=== PATIENT | female | born 1955 | race Caucasian/White ===

== ENCOUNTER 2017-12-27 08:29 | Inpatient (IN) | payer OTHER ==
[2017-12-27] MEDS ORDERED: BUPIVACAINE 0.5% 30 ML SDV ONE (08:34)
[2017-12-27] MEDS ORDERED: POLYMYXIN B SULFATE 500,000 UNIT/10 ML SYR IRR ONE (08:35)
[2017-12-27] MEDS ORDERED: BACITRACIN 50,000 UNITS/10 ML SYR IRR ONE (08:35)
[2017-12-27] MEDS ORDERED: LIDOCAINE 1% 2 ML INJ ID PRN (08:42)
[2017-12-27] MEDS ORDERED: LR 1,000 ML IV ONE (08:42)
[2017-12-27] MEDS ORDERED: MIDAZOLAM 2 MG/2 ML VIAL IVP ONE (09:25)
--- NOTE | 2017-12-27 09:25 | PDANEPAE ---
ANE Past Medical History - Cardiovascular History Hx Hypertension: Yes Hx Arrhythmias: No Hx Chest Pain: No Hx Coronary Artery / Peripheral Vascular Disease: No Hx CHF / Valvular Disease: No Hx Palpitations: No - Pulmonary History Hx COPD: No Hx Asthma/Reactive Airway Disease: No Hx Recent Upper Respiratory Infection: No Hx Oxygen in Use at Home: No Hx Sleep Apnea: Yes Sleep Apnea Screening Result - Last Documented: Negative - Neurologic History Hx Cerebrovascular Accident: No Hx Seizures: No Hx Dementia: No Neurologic History Comment: OCCAS MIGRAINE - ONCE YRLY - Endocrine History Hx Diabetes: Yes Hypothyroid: Yes Hyperthyroid: No Obesity: no Endocrine History Comment: HYPOTHYROID - Renal History Hx Renal Disorders: No Renal History Comment: KIDNEY STONE - NON SYMPTOMATIC - Liver History Hx Hepatic Disorders: No Hepatic History Comment: RUBY. FATTY LIVER - Neurological & Psychiatric Hx Hx Neurological and Psychiatric Disorders: Yes Neurological / Psychiatric History Comment: PANIC ATTACK IN PAST. ANXIETY - Cancer History Hx Cancer: Yes Cancer History Comment: COLON - Congenital Disorder History Hx Congenital Disorders: No - GI History Hx Gastrointestinal Disorders: Yes Gastrointestinal History Comment: HIATAL HERNIA. COLON CA - Other Health History Other Health History: ANEMIA - BLEEDING COLON - Chronic Pain History Chronic Pain: No - Surgical History Prior Surgeries: ENDOSCOPY COLONOSCOPY. CYST R OVARY. LAPAROSCOPIC ADHESIONS ENDOMETRIOSIS. CHOLECYSTECTOMY. TONSILLECTOMY. WISDOM TEETH ANE Review of Systems Review of Systems: - Exercise capacity METS (RN): 5 METS ANE Patient History - Allergies Allergies/Adverse Reactions: adhesive tape Allergy (Verified 12/25/17 11:14) Rash meperidine [From Demerol] Allergy (Verified 12/25/17 11:14) HALLUCINATIONS - Home Medications Home Medications: Levothyroxine [Synthroid 125 mcg (*)] 125 mcg PO DAILY06 12/25/17 [Last Taken 07:30] Metoprolol Succinate Xr [Toprol Xl 100 mg (*)] 100 mg PO DAILY 12/25/17 [Last Taken 12/27/17 07:30] Sertraline HCl [Zoloft 100mg (*)] 150 mg PO DAILY 12/25/17 [Last Taken 12/27/17 07:30] - NPO status NPO Since - Liquids (Date): 12/27/17 NPO Since - Liquids (Time): 07:30 NPO Since - Solids (Date): 12/26/17 NPO Since - Solids (Time): 23:00 - Smoking Hx Smoking Status: Never smoked - Family Anes Hx Family Hx Anesthesia Complications: NEG ANE Labs/Vital Signs - Vital Signs Blood Pressure: 182/79 Heart Rate: 70 Respiratory Rate: 16 O2 Sat (%): 98 Height: 166.37 cm Weight: 61.689 kg ANE Physical Exam - Airway Neck exam: FROM Mallampati Score: Class 1 Mouth exam: normal dental/mouth exam, small mouth opening - Pulmonary Pulmonary: no respiratory distress - Cardiovascular Cardiovascular: regular rate and rhythym - ASA Status ASA Status: II ANE Anesthesia Plan Anesthesia Plan: general endotracheal anesthesia Specialized Airway: video laryngoscope
[2017-12-27] MEDS ORDERED: fentaNYL 250 MCG/5 ML INJ ONE (09:50)
[2017-12-27] MEDS ORDERED: PROPOFOL/EMULSION 500 MG/50 ML BOTTLE IV ONE (09:50)
[2017-12-27] MEDS ORDERED: LIDOCAINE 2% 5 ML SDV ONE ×2 (09:52→12:57)
[2017-12-27] MEDS ORDERED: ERTAPENEM 1 GM VIAL IV ONE (10:22)
--- NOTE | 2017-12-27 10:22 | PDHPUP ---
History & Physical Update H&P update statement: This history and physical update is based on an assessment of the patient which was completed after admission or registration (within 24 hours), but prior to the surgery/procedure. H&P update: H&P reviewed & patient examined, no change in patient's condition since H&P completed
[2017-12-27] MEDS ORDERED: BUPIVACAINE 0.25% 30 ML SDV ONE (12:05)
[2017-12-27] MEDS ORDERED: HYDROmorphONE/DILAUDID 2 MG/ML INJ ONE (12:25)
[2017-12-27] MEDS ORDERED: ROCURONIUM 100 MG/10 ML VIAL ONE (12:57)
[2017-12-27] MEDS ORDERED: ONDANSETRON 4 MG/2 ML VIAL ONE (12:57)
[2017-12-27] MEDS ORDERED: DEXAMETHASONE 4 MG/ML VIAL ONE (12:57)
[2017-12-27] MEDS ORDERED: HYDROmorphONE/DILAUDID 1 MG/ML INJ IVP PRN (13:44)
[2017-12-27] MEDS ORDERED: NALOXONE HCL 0.4 MG/ML INJ IVP PRN (13:44)
[2017-12-27] MEDS ORDERED: LR 500 ML IV PRN (13:44)
[2017-12-27] MEDS ORDERED: fentaNYL 100 MCG/2 ML INJ IVP PRN (13:44)
--- NOTE | 2017-12-27 13:44 | POSTANESTH ---
Post Anesthetic Evaluation Cardiovascular Status: Normal, Stable Respiratory Status: Normal, Stable Level of Consciousness/Mental Status: Can Participate in Eval Pain Control: Adequate, Prn Tx Ordered Nausea/Vomiting Control: Adequate, Prn Tx Ordered Complications Possibly Related to Anesthesia: None Noted
[2017-12-27] MEDS ORDERED: PROMETHAZINE HCL 25 MG/ML INJ ONE (13:53)
[2017-12-27] MEDS ORDERED: LABETALOL HCL 5 MG/ML 20 ML MDV ONE (13:53)
[2017-12-27] MEDS ORDERED: HYDROmorphONE/DILAUDID 1 MG/ML INJ ONE (13:53)
[2017-12-27] MEDS ORDERED: fentaNYL 100 MCG/2 ML INJ ONE (13:54)
[2017-12-27] MEDS: PROMETHAZINE HCL 25 MG/ML INJ IVP PRN ×2 (13:59→14:15)
[2017-12-27] MEDS: LABETALOL HCL 5 MG/ML 20 ML MDV IVP PRN ×3 (14:01→14:50)
[2017-12-27] MEDS ORDERED: ONDANSETRON 4 MG/2 ML VIAL IVP PRN (14:11)
[2017-12-27] MEDS ORDERED: TEMAZEPAM 15 MG CAP PO PRN (14:11)
--- NOTE | 2017-12-27 14:23 | POSTOPPROG ---
Post Op Note Date of Operation: 12/27/17 Surgeon: Alverto Lindsay (, FACS) Agricultural Chemicals Inspector: Greg Valadez RN-FA Anesthesiologist: Guicho Galindo MD Anesthesia: GET(General Endotracheal) Pre-op Diagnosis: cecal carcinoma/polpyp hepatic flexure Post-op Diagnosis: cecal carcinoma/polyp mid transverse conon Procedure: lap extended right dipak-colectoomy Findings: see dictated report Inf/Abcess present in the surg proc area at time of surgery?: No EBL: 50-100 (100) Complications: duodenal serosal tear Specimen(s): cecum/TI/ascending and portion of transverse colon
[2017-12-27] MEDS ORDERED: LR 1,000 ML IV SCH (14:30)
[2017-12-27] MEDS ORDERED: PROMETHAZINE HCL 25 MG/ML INJ IVP PRN (15:30)
--- NOTE | 2017-12-27 15:49 | GOP ---
[f rep st] OPERATIVE REPORT DATE OF OPERATION: 12/27/2017 SURGEON: Alverto Lindsay MD,FACS HEALTH INSURANCE ASSESSOR: STEPHANY Stallings ANESTHESIA: General endotracheal. ANESTHESIOLOGIST: Justin Painting MD PREOPERATIVE DIAGNOSIS: 1. Cecal carcinoma. 2. Unresected polyp hepatic flexure. POSTOPERATIVE DIAGNOSIS: 1. Extensive intraabdominal adhesions. 2. Cecal carcinoma. 3. Indeterminate polyps of the transverse colon. PROCEDURE PERFORMED: Laparoscopic assisted extended right colectomy with lysis of adhesions. FINDINGS: Extensive intraabdominal adhesions between the omentum and anterior abdominal wall related to prior surgeries. Tattoo agrawal from the unresected polyps suspected to be in the hepatic flexure extending to the mid transverse colon. No evidence of peritoneal or hepatic metastases. Extended right colectomy specimen submitted for gross inspection showing 2 polyps in the transverse colon 6 cm from the resection margin. These appeared benign but were not confirmed by frozen section. Cecal carcinoma encroaching upon the appendiceal orifice with mild appendiceal dilatation and probable transmural penetration of tumor resected with adjacent peritoneum and fat, submitted for permanent section. ESTIMATED BLOOD LOSS: 100 mL. DESCRIPTION OF PROCEDURE: After informed consent was obtained, the patient was brought to the operating room and placed under general anesthesia. She had undergone mechanical and antibiotic bowel preparation and received 1 g of ertapenem prior to skin incision. Before proceeding, a time-out and identification of patient was performed. The abdomen was prepped and draped in the usual sterile fashion. The left arm was tucked and padded. SCD stockings were in place. All incision sites were infiltrated with 0.25% Marcaine. A previous laparoscopic infraumbilical incision was reincised and dissection carried out through the skin and subcutaneous tissues and anterior fascia entering the peritoneal cavity under direct visualization. A 12 mm bladeless trocar was introduced and pneumoperitoneum established with CO2 gas to a pressure of 15 mmHg. A 30-degree scope was introduced and extensive peritoneal adhesions were noted immediately. Additional 5 mm ports were placed in the left upper quadrant, lower midline and this allowed moving the scope from port to port, and the Harmonic Scalpel was introduced dispatching the adhesions from the anterior abdominal wall under direct visualization. After these had been cleared, the ascending colon and cecum were identified. There were adhesions to the abdominal wall lateral to the course of the colon suspicious for possible transmural penetration. The tattoo agrawal in the transverse colon were noted and the omentum overlaid the transverse colon but did not appear to have any evidence of malignancy. The ascending colon was mobilized along with the cecum taking down the peritoneum well lateral to the cecum and including this as part of the specimen. As dissection was carried out from anterior to posterior, the colon was swept medially freeing up the terminal ilium and appendix in the process. The dissection was carried out cephalad to the hepatic flexure where the omentum and colon were closely fused to the liver edge where previous cholecystectomy had been performed. Turning to the mid transverse colon, the omentum was incised between the colon and the stomach using the Harmonic Scalpel for hemostasis, and this dissection was carried out toward the gallbladder fossa. As the transverse colon was liberated from its attachments, the adhesions pulled up the duodenal and, in the course of dissecting this, a small serosal tear was observed. This did not appear to be full thickness and was closely inspected and I elected to repair this as follows : A 3-0 Vicryl suture on an SH needle was shaped into a ski shape needle and passed through the 12 mm port. This was used to create a serosal to serosal closure over the laceration (Lembert stitch) and was tied intracorporeally. This closed off the defect nicely and I suspect this would have healed without suturing because it was only partial thickness but did not want to take that chance. The remainder of the dissection was performed laparoscopically incising the transverse mesocolon and dissecting from the level of the middle colic artery to the hepatic flexure and then inferiorly to the ileocolic vessels taking the mesentery close to the course of the ileocolic vessels. Blood supply to the terminal ileum was preserved. At this point, we proceeded to perform an access incision and mobilize the bowel for resection and anastomosis. A small transverse incision was made in the right upper quadrant just to the right of midline incising through the anterior rectus sheath, rectus muscle, posterior rectus sheath and peritoneum. A medium Nilo wound protector was deployed and the ascending colon, omentum, hepatic flexure and transverse colon were mobilized into the incision. The bowel was divided proximally and distally with the AUDREY stapler and the specimen submitted to Pathology for gross inspection as well as permanent section. Hemostasis was secured with cautery and 2-0 Vicryl suture ligature. The transverse colon and terminal ilium were reanastomosed in a hand-sewn [id number] two-layered anastomosis as follows: Small bowel and large bowel were approximated with interrupted 3-0 Vicryl sutures in an isoperistaltic arrangement. Parallel enterotomies were performed and the posterior row of the anastomosis was performed with continuous running 3 -0 Vicryl suture. The final anterior outer row of the anastomosis was performed with interrupted 3-0 Vicryl sutures. Upon completion, the anastomosis was intact without undue tension. It was returned to the peritoneal cavity. The Nilo wound protector was sealed with an umbilical tape and a pneumoperitoneum established. The right upper quadrant and pericolic gutter were irrigated and aspirated, and approximately 100 cc of blood and clots were evacuated. There was no active bleeding upon completion. The umbilical fascial defect was repaired with a transfascial closure needle and 0 Vicryl suture. The pneumoperitoneum was evacuated. The Nilo wound protector was removed and a clean closure procedure followed for the remainder of the case. Gowns and gloves were changed. New instruments were brought into the field and the operative field was redraped. The access incision was closed with 2-0 Vicryl suture for the posterior rectus sheath and 0 PDS suture for the anterior rectus sheath. Subcutaneous tissues were further infiltrated with Marcaine and closed with 3-0 Vicryl suture. Skin was closed with eliel. The remaining incisions were closed with 4-0 Monocryl suture in a subcuticular fashion for the skin. Patient was extubated and returned to the recovery room in satisfactory condition. Needle, sponge, and instrument count correct. COMPLICATIONS: None. Copy requested to: [facility] /[id number]/MODL MTDD
[2017-12-27] MEDS: HYDROmorphONE/DILAUDID 1 MG/ML INJ IVP PRN ×2 (16:05→20:50)
[2017-12-27] MEDS: KETOROLAC 15 MG/1 ML SDV IVP SCH ×2 (22:29→22:43)
[2017-12-28] MEDS: HYDROmorphONE/DILAUDID 1 MG/ML INJ IVP PRN ×3 (02:12→15:11)
[2017-12-28 05:34] LABS: PLATELET COUNT 178 10^3/uL (150-400)
[2017-12-28] MEDS: KETOROLAC 15 MG/1 ML SDV IVP SCH ×4 (05:58→23:06)
[2017-12-28] MEDS ORDERED: LEVOTHYROXINE 125 MCG TAB PO SCH (06:00)
[2017-12-28] MEDS: LEVOTHYROXINE 125 MCG TAB PO SCH (06:17)
[2017-12-28] MEDS: SERTRALINE HCL 100 MG TAB PO SCH (08:15)
[2017-12-28] MEDS: ENOXAPARIN 40 MG/0.4 ML SYR SC SCH (08:15)
[2017-12-28] MEDS: METOPROLOL SUCCINATE XR 100 MG TAB PO SCH (10:06)
--- NOTE | 2017-12-28 10:36 | PDCONSULT ---
[employer] Worker Note: POD#1 Mandy is resting comfortably and tolerating sips of liquids/no flatus yet required urinary cath x 1 BP is somewhat labile but not concerning at this point Lungs: CTA CVS: RRR Abd: soft/+BS, incisions o.k. HCT 32% Imp: post op ileus Rec: continue IV/sips/increase activity/decrease Metoprolol-hold for SBP < 120 discussed findings at surgery,prognosis, staging and treatment of colon cancer 30 min visit S MD Angélica, FACS
--- NOTE | 2017-12-28 15:21 | ASMTCMCOM ---
CM Note CM Note Notes: Spoke w/RN, anticipate pt will dc home w/support of when medically stable. No therapies ordered, CM available for any changes. DC Plan: Independent Date Signed: 12/28/2017 03:20 PM Electronically Signed By:Jamaica Gonzalez RN
[2017-12-28] MEDS ORDERED: METOPROLOL TARTRATE 25 MG TAB PO ONE (17:00)
[2017-12-28] MEDS: LORazepam 0.5 MG TAB PO PRN (17:56)
[2017-12-28] MEDS: METOPROLOL TARTRATE 25 MG TAB PO SCH (22:02)
[2017-12-29] MEDS: traMADol 50 MG TAB PO PRN ×3 (03:10→15:54)
[2017-12-29 05:13] LABS: PLATELET COUNT 161 10^3/uL (150-400)
[2017-12-29] MEDS: KETOROLAC 15 MG/1 ML SDV IVP SCH ×4 (05:13→23:03)
[2017-12-29] MEDS: LEVOTHYROXINE 125 MCG TAB PO SCH (05:14)
[2017-12-29] MEDS: METOPROLOL SUCCINATE XR 100 MG TAB PO SCH (09:41)
[2017-12-29] MEDS: METOPROLOL TARTRATE 25 MG TAB PO SCH ×2 (09:42→20:07)
[2017-12-29] MEDS: ENOXAPARIN 40 MG/0.4 ML SYR SC SCH (09:46)
[2017-12-29] MEDS: SERTRALINE HCL 100 MG TAB PO SCH (09:48)
--- NOTE | 2017-12-29 10:43 | PDCONSULT ---
Clinical Trial Associate Note: Gaviota is feeling distended, though improved after a BM She is voiding well, she had a severe headache after Dilaudid Abd: soft, + BS, incisions o.k. Hct 29.6% Imp: resolving ileus Rec: slowly advance diet/transition to po meds S MD Angélica, FACS
[2017-12-29] MEDS ORDERED: PANTOPRAZOLE SODIUM 40 MG TAB PO ONE (10:45)
[2017-12-29] MEDS: LORazepam 0.5 MG TAB PO PRN ×2 (13:02→23:04)
[2017-12-29 22:43] VITALS: RESP 16
[2017-12-30] MEDS: KETOROLAC 15 MG/1 ML SDV IVP SCH (05:23)
[2017-12-30] MEDS: LEVOTHYROXINE 125 MCG TAB PO SCH (05:24)
--- NOTE | 2017-12-30 07:16 | PDDCSUM ---
Discharge Summary Discharge Summary: #[id number] S MD Angélica, FACS
[2017-12-30 08:17] VITALS: PULSE 58; TEMP 98.4; O2SAT 92
[2017-12-30] MEDS: ENOXAPARIN 40 MG/0.4 ML SYR SC SCH (08:23)
[2017-12-30] MEDS: METOPROLOL SUCCINATE XR 100 MG TAB PO SCH (08:24)
--- NOTE | 2017-12-30 08:25 | GDS ---
[f rep st] DISCHARGE SUMMARY DISCHARGE DIAGNOSES: 1. Cecal carcinoma. 2. Indeterminate polyps transverse colon. 3. Anxiety disorder. 4. Hypothyroidism. 5. Hypertension. 6. Recently diagnosed gastritis. 7. Mild postoperative ileus and urinary retention. 8. Hiatal hernia. PROCEDURE PERFORMED: 12/27 laparoscopic-assisted extended right colectomy. HOSPITAL COURSE: For details of admission history and physical please see dictated summary. Briefly, the patient is a 62-year-old female, recently diagnosed with cecal carcinoma and polyps in the hepatic flexure. These actually turned out to be in the transverse colon. She underwent extended right colectomy to the mid transverse colon on the day of admission, after mechanical and antibiotic bowel preparation. She received 1 dose of ertapenem preoperatively and no antibiotics postoperatively. The patient was started on a clear liquid diet. After surgery, she had an adverse reaction to Dilaudid with headache and transient hypotension. She was switched to oral tramadol and Ketoralac for pain control which worked much better. She had urinary retention. The first evening after surgery required a single catheterization and thereafter was able to void spontaneously. She began passing flatus on the day after surgery. She was slowly advanced in her diet. At time of discharge, had had several bowel movements and was advanced to a low-fiber diet which will continue for the next 10 days. The patient's hematocrit postoperatively was 31.5, on the morning of discharge was 31.9. She was started on omeprazole for gastritis identified at the time of her colonoscopy with an EGD and has a history of hiatal hernia. DISCHARGE MEDICATIONS: Include ibuprofen 600 mg p.o. t.i.d., levothyroxine 125 mcg p.o. daily, metoprolol XR 1 p.o. daily, Zoloft 150 mg p.o. daily, tramadol 50 mg p.o. q.6 hours p.r.n. pain, Lorazepam 0.5 mg p.o. t.i.d. p.r.n. anxiety, and omeprazole 40 mg p.o. daily. Copy requested to: Dr. Arnel Rivas /[id number]/MODL MTDD
[2017-12-30] MEDS: SERTRALINE HCL 100 MG TAB PO SCH (08:35)
[2017-12-30] MEDS ORDERED: IBUPROFEN 600 MG TAB PO SCH (09:00)
[2017-12-30] MEDS ORDERED: PANTOPRAZOLE SODIUM 40 MG TAB PO SCH (09:00)
[2017-12-30 10:01] VITALS: BP 103/58
[2017-12-30] MEDS: METOPROLOL TARTRATE 25 MG TAB PO SCH (10:20)
--- NOTE | 2018-01-01 12:39 | SOAPPROG ---
Downtime Inpatient MD Late Entry SOAP Note: I called Gaviota to inform her of the results of her pathology. She had a T3 N1a adenocarcinoma of the cecum. Surgical margins were widely clear and she had 1/ 17 nodes positive for metastatic adenocarcinoma. She has a genetic panel including MSI/BRAF pending. I advised her to call Dr. Forbes's office at [facility] to schedule an appointment for late next week. I will see her back in the office on Saturday for staple removal. Luis Angel Lindsay MD, FACS
--- NOTE | 2018-01-01 12:43 | SOAPPROG ---
Downtime Inpatient MD Late Entry SOAP Note: Due to computer downtime, I am recreating the following medical record entry as of this date and time based on the information specified below: Information on which this medical record entry is based: (MD: Please list items, such as nursing notes, labs, imaging, etcetera)
== END 2017-12-30 11:28 | disposition home or self-care (01) | DRG 330 ==
LOC: F3E 08:29
PROVIDERS: ADMIT Surgery; ATTEND Surgery
DX: C18.0 Malignant neoplasm of cecum (principal); D12.3 Benign neoplasm of transverse colon; K56.50 Intestinal adhesions [bands], unspecified as to partial versus complete obstruction; K91.89 Other postprocedural complications and disorders of digestive system; K44.9 Diaphragmatic hernia without obstruction or gangrene; R33.9 Retention of urine, unspecified; R51 Headache; I95.2 Hypotension due to drugs; T40.2X5A Adverse effect of other opioids, initial encounter; K29.70 Gastritis, unspecified, without bleeding; F41.8 Other specified anxiety disorders; E03.9 Hypothyroidism, unspecified; E78.5 Hyperlipidemia, unspecified; I10 Essential (primary) hypertension; Z80.41 Family history of malignant neoplasm of ovary; M79.89 Other specified soft tissue disorders
CPT/HCPCS: J1100; J1170; J1335; J1650; J1885; J2250; J2405; J2550; J2704; J3010

== ENCOUNTER 2018-03-15 18:05 | Observation (INO) | payer OTHER ==
[2018-03-15] MEDS ORDERED: NS 1,000 ML IV ONE (18:45)
--- NOTE | 2018-03-15 18:49 | EDPHY ---
H & P Stated Complaint: abd pain Time Seen by Provider: 03/15/18 18:33 HPI/ROS: CHIEF COMPLAINT: Abdominal pain HISTORY OF PRESENT ILLNESS: Patient is a 62-year-old female who is currently receiving chemotherapy for colon cancer who comes to the emergency department complaining of epigastric pain and bloating. She states that she has had diarrhea for about 3 days but today tapered off and she has not been able to pass flatus. She had a colectomy of her ascending and transverse colon 2 months ago. She also has a history of appendectomy and cholecystectomy as well as gastritis and hiatal hernia. She is not heavy drinker. No pancreatic disease. REVIEW OF SYSTEMS: Constitutional: denies: chills, fever, recent illness, recent injury EENTM: denies: blurred vision, double vision, nose congestion Respiratory: denies: cough, shortness of breath Cardiac: denies: chest pain, irregular heart rate, lightheadedness, palpitations Gastrointestinal/Abdominal: See HPI Genitourinary: denies: dysuria, frequency, hematuria, pain Musculoskeletal: denies: joint pain, muscle pain Skin: denies: lesions, rash, jaundice, bruising Neurological: denies: headache, numbness, paresthesia, tingling, dizziness, weakness Hematologic/Lymphatic: denies: blood clots, easy bleeding, easy bruising Immunologic/allergic: denies: HIV/AIDS, transplant EXAM: GENERAL: Well-appearing, well-nourished and in no acute distress. HEAD: Atraumatic, normocephalic. EYES: Pupils equal round and reactive to light, extraocular movements intact, sclera anicteric, conjunctiva are normal. ENT: TMs normal, nares patent, oropharynx clear without exudates. Moist mucous membranes. NECK: Normal range of motion, supple without lymphadenopathy or JVD. LUNGS: Breath sounds clear to auscultation bilaterally and equal. No wheezes rales or rhonchi. HEART: Regular rate and rhythm without murmurs, rubs or gallops. ABDOMEN: Epigastric tenderness, slight distension, BACK: No CVA tenderness, no spinal tenderness, step-offs or deformities EXTREMITIES: Normal range of motion, no pitting or edema. No clubbing or cyanosis. NEUROLOGICAL: Cranial nerves II through XII grossly intact. Normal speech, normal gait. 5/5 strength, normal movement in all extremities, normal sensation PSYCH: Normal mood, normal affect. SKIN: Warm, dry, normal turgor, no visible rashes or lesions. Source: Patient Exam Limitations: No limitations - Personal History Current Tetanus/Diphtheria Vaccine: Yes Current Tetanus Diphtheria and Acellular Pertussis (TDAP): Yes - Medical/Surgical History Hx Asthma: No Hx Chronic Respiratory Disease: No Hx Diabetes: Yes Hx Cardiac Disease: No Hx Renal Disease: No Hx Cirrhosis: No Hx Alcoholism: No Hx HIV/AIDS: No Hx Splenectomy or Spleen Trauma: No Other PMH: colon CA, hypothyroid, shilpa, appy, tonsilectomy, R ovarian cyst, HTN , - Family History Significant Family History: No pertinent family hx - Social History Smoking Status: Never smoked Alcohol Use: Sober Drug Use: None Constitutional: Initial Vital Signs Temperature (C) 36.7 C 03/15/18 18:20 Heart Rate 79 03/15/18 18:20 Respiratory Rate 16 03/15/18 18:20 Blood Pressure 136/92 H 03/15/18 18:20 O2 Sat (%) 97 03/15/18 18:20 O2 Delivery Mode Room Air Allergies/Adverse Reactions: adhesive tape Allergy (Verified 12/25/17 11:14) Rash hydromorphone [From Dilaudid] Allergy (Verified 03/15/18 18:18) meperidine [From Demerol] Allergy (Verified 12/25/17 11:14) HALLUCINATIONS Home Medications: Medication Instructions Recorded Levothyroxine [Synthroid 125 mcg 125 mcg PO DAILY06 12/25/17 (*)] Metoprolol Succinate Xr [Toprol Xl 100 mg PO DAILY 12/25/17 100 mg (*)] Sertraline HCl [Zoloft 100mg (*)] 150 mg PO DAILY 12/25/17 LORazepam [Ativan (*)] 0.5 mg PO TID PRN #14 tab 12/30/17 Pantoprazole Sodium [Protonix 40mg 40 mg PO DAILY #30 tab 12/30/17 (*)] Cholecalciferol (Vitamin D3) 5,000 unit PO DAILY 03/16/18 [Vitamin D3] Fluticasone Nasal [Flonase Nasal 1 sprays EACHNARE HS PRN 03/16/18 [place]] Herbals/Supplements -Info Only 1 ea PO DAILY 03/16/18 Ibuprofen [Motrin (*)] 400 mg PO DAILY PRN 03/16/18 Loratadine [Claritin] 10 mg PO DAILY PRN 03/16/18 Metoprolol Succinate Xr [Toprol Xl 25 mg PO DAILY@19 03/16/18 25 mg (*)] Prochlorperazine Maleate 10 mg PO DAILY PRN 03/16/18 [Compazine 10mg (*)] Medical Decision Making - Diagnostics EKG Interpretation: An EKG obtained and was read and documented in trace view. Please see trace view for full reading and report. Sinus rhythm, no acute ischemic changes Imaging: Discussed imaging studies w/ diamond selector Radiologist ED Course/Re-evaluation: Patient states some of her cramping is returning. She does not wish to have narcotics. I will treat her with Toradol this point. 9:50 p.m. I discussed the case Dr. Calvin Clements who will admit for Dr. Lindsay. He does recommend antibiotics. Differential Diagnosis: Partial list of the Differential diagnosis considered include but were not limited to; obstruction, enteritis, perforation and although unlikely based on the history and physical exam, I also considered ischemia, abscess. - Data Points Laboratory Results: Laboratory Results 03/15/18 19:00 03/15/18 19:00 Medications Given: Discontinued Medications Cholecalciferol (Vitamin D) 5,000 units PO DAILY NANETTE Stop: 09/12/18 13:44 Last Admin: 03/16/18 14:06 Dose: Not Given Sodium Chloride (Ns) 1,000 mls @ 0 mls/hr IV EDNOW ONE; Wide Open PRN Reason: Protocol Stop: 03/15/18 18:46 Last Admin: 03/15/18 19:10 Dose: 1,000 mls Levofloxacin/Dextrose (Levaquin 750 Mg (Premix)) 150 mls @ 100 mls/hr IV EDNOW ONE PRN Reason: Protocol Stop: 03/15/18 23:20 Last Admin: 03/15/18 23:09 Dose: 150 mls Metronidazole/Sodium Chloride (Flagyl 500 Mg (Premix)) 100 mls @ 100 mls/hr IV EDNOW ONE PRN Reason: Protocol Stop: 03/15/18 22:51 Last Admin: 03/15/18 22:04 Dose: 100 mls Lactated Ringer's (Lr) 1,000 mls @ 75 mls/hr IV CONT ON LICENSE OF [facility] Stop: 09/11/18 22:29 Last Admin: 03/16/18 00:38 Dose: 1,000 mls Cefoxitin Sodium 1 gm/ Sterile (Water) 10.5 mls @ 126 mls/hr IV Q6HRS NANETTE PRN Reason: Protocol Stop: 04/15/18 00:00 Last Admin: 03/16/18 05:37 Dose: 10.5 mls Ketorolac Tromethamine (Toradol) 15 mg IVP EDNOW ONE Stop: 03/15/18 20:57 Last Admin: 03/15/18 21:09 Dose: 15 mg Levofloxacin (Levaquin) 750 mg PO DAILY AT 10AM ON LICENSE OF [facility] PRN Reason: Protocol Stop: 04/15/18 09:59 Last Admin: 03/16/18 10:43 Dose: 750 mg Levothyroxine Sodium (Synthroid) 125 mcg PO DAILY06 ON LICENSE OF [facility] Stop: 09/12/18 13:44 Last Admin: 03/16/18 14:03 Dose: 125 mcg Lorazepam (Ativan Injection) 1 mg IV PRN PRN Reason: Sleep Stop: 09/12/18 00:42 Last Admin: 03/16/18 02:33 Dose: 0.5 mg Metoprolol Succinate (Toprol Xl) 100 mg PO DAILY NANETTE Stop: 09/12/18 13:44 Last Admin: 03/16/18 14:03 Dose: 100 mg Metronidazole (Flagyl) 500 mg PO Q8HRS ON LICENSE OF [facility] PRN Reason: Protocol Stop: 04/15/18 13:59 Last Admin: 03/16/18 14:03 Dose: 500 mg Pantoprazole Sodium (Protonix) 40 mg PO DAILY ON LICENSE OF [facility] Stop: 09/12/18 13:44 Last Admin: 03/16/18 14:06 Dose: Not Given Sertraline HCl (Zoloft) 150 mg PO DAILY ON LICENSE OF [facility] Stop: 09/12/18 13:44 Last Admin: 03/16/18 14:06 Dose: Not Given Departure - Departure Disposition: [facility] Inpatient Acute Clinical Impression: Abdominal pain Qualifiers: Abdominal location: epigastric Qualified Code(s): R10.13 - Epigastric pain Condition: Good
[2018-03-15 19:09] LABS: PLATELET COUNT 130 10^3/uL (150-400)
[2018-03-15 19:17] LABS: INR 1.03 (0.83-1.16); PROTIME(PATIENT) 13.7 SEC (12.0-15.0)
--- NOTE | 2018-03-15 19:17 | CPEKG ---
Heart Rate: 76 RR Interval: 789 P-R Interval: 152 QRSD Interval: 84 QT Interval: 388 QTC Interval: 437 P [place]: 6 QRS [place]: 58 T Wave [place]: 44 EKG Severity - NORMAL ECG - EKG Impression: SINUS RHYTHM Electronically Signed By: Nile Overton 15-Mar-2018 19:21:56
[2018-03-15] MEDS ORDERED: IOPAMIDOL (ISOVUE-300) 100 ML BTL ONE (20:19)
[2018-03-15] MEDS ORDERED: KETOROLAC 15 MG/1 ML SDV IVP ONE (20:56)
[2018-03-15] MEDS ORDERED: ONDANSETRON 4 MG/2 ML VIAL IVP PRN (22:04)
[2018-03-15] MEDS ORDERED: ACETAMINOPHEN 325 MG TAB PO PRN (22:07)
[2018-03-15] MEDS ORDERED: LR 1,000 ML IV SCH (22:30)
[2018-03-15] MEDS ORDERED: levOFLOXACIN 750 MG/DEXTROSE/150 ML BAG IV ONE (23:05)
[2018-03-16] MEDS: cefOXitin SODIUM 1 GM in STERILE WATER INJ 10.5 ML IV SCH ×2 (00:38→05:37)
[2018-03-16] MEDS ORDERED: KETOROLAC 15 MG/1 ML SDV IVP PRN (00:42)
[2018-03-16] MEDS ORDERED: LORazepam 2 MG/ML INJ IV PRN (00:43)
--- NOTE | 2018-03-16 09:58 | GHP ---
[f rep st] HISTORY AND PHYSICAL DATE OF ADMISSION: 03/15/2018 HISTORY OF PRESENT ILLNESS: This is a 62-year-old female with a history of abdominal pain. Per the patient, she developed initially abdominal pain on the afternoon of the . This was similar to the pain she had 2 weeks ago after chemotherapy, but this progressed and became markedly more intense. Of note, the patient underwent a laparoscopic-assisted extended right colectomy in December of 2017 a nd is currently undergoing chemotherapy. Her most recent bout of chemotherapy was approximately 2 we eks ago. The patient noted increasing pain and presented to the emergency department. At present, her discomfort is markedly improved. She states she has no pain at rest. She has no phyllis sea or vomiting. She has had some diarrhea, but this has improved. The patient denies any fever or chills. PAST MEDICAL HISTORY: Significant for hypertension, hypothyroidism. PAST SURGICAL HISTORY: Significant for the above as well as cholecystectomy, tonsillectomy, appendec ольга and right ovarian cystectomy. MEDICATIONS: Include Synthroid, metoprolol, Zoloft, Ativan, Protonix. ALLERGIES: Include hydromorphone and meperidine. SOCIAL HISTORY: Patient is a nonsmoker. PHYSICAL EXAMINATION: VITAL SIGNS: Temperature is 36.6, pulse 58, respirations 16, blood pressure i s 115/60. GENERAL: She is an alert female in no apparent distress. HEENT: Her sclerae are anicter ic. NECK: There is no evidence of jugular venous distention. HEART: Regular rate and rhythm. LUNGS: Clear to auscultation bilaterally. ABDOMEN: Soft and nontender. Incisions are healing well and no hernias identified. EXTREMITIES: Without cyanosis, clubbing, or edema. DIAGNOSTIC DATA: Patient has a CBC with a white count of 4.96, down from 10.13, hemoglobin 11.2, hem atocrit of 34.8, and platelets of 87. Chemistry shows a sodium 143, potassium 3.6, chloride 109, CO2 25, BUN 9, creatinine 0.6 and glucose is 85. LFTs are essentially normal. DIAGNOSTIC IMAGING: The patient had a CT scan of the abdomen and pelvis. This demonstrates mild inf lammation of the distal small bowel. The anastomosis appears to be intact. There is no evidence of abscess or free air. There is a small amount of trace free fluid. ASSESSMENT/PLAN: A 62-year-old female, status post chemotherapy with likely enteritis. There is no evidence for compromise of the surgical area. As the patient is markedly improved, we will gradually advance her diet. Due to her recent chemotherapy and surgery, we will plan on antibiotic therapy. Signs and symptoms of concern were discussed at length with the patient and her family. Questions arteaga ve been answered. Copy requested to: Dr. Leidy Rai #: [id number]
[2018-03-16 11:39] VITALS: BP 130/65
[2018-03-16] MEDS ORDERED: FLUTICASONE NASAL 120 SPRAYS/16 GM MDI EACHNARE PRN (11:53)
[2018-03-16] MEDS ORDERED: CETIRIZINE 10 MG TAB PO PRN (13:36)
[2018-03-16] MEDS ORDERED: LEVOTHYROXINE 125 MCG TAB PO SCH (13:45)
[2018-03-16] MEDS ORDERED: CHOLECALCIFEROL VIT D3 1,000 UNITS TAB PO SCH (13:45)
[2018-03-16] MEDS ORDERED: SERTRALINE HCL 100 MG TAB PO SCH (13:45)
[2018-03-16] MEDS ORDERED: METOPROLOL SUCCINATE XR 100 MG TAB PO SCH (13:45)
[2018-03-16] MEDS ORDERED: PANTOPRAZOLE SODIUM 40 MG TAB PO SCH (13:45)
[2018-03-16] MEDS ORDERED: metroNIDAZOLE 500 MG TAB PO SCH (14:00)
[2018-03-16] MEDS ORDERED: METOPROLOL SUCCINATE XR 25 MG TAB PO SCH (19:00)
[2018-03-17] MEDS ORDERED: CETIRIZINE 10 MG TAB PO SCH (09:00)
== END 2018-03-16 15:06 | disposition home or self-care (01) ==
LOC: F1N 23:25
PROVIDERS: ADMIT Surgery; ATTEND Surgery
DX: R10.9 Unspecified abdominal pain (principal); R19.7 Diarrhea, unspecified; R14.0 Abdominal distension (gaseous); C18.9 Malignant neoplasm of colon, unspecified; I10 Essential (primary) hypertension; K44.9 Diaphragmatic hernia without obstruction or gangrene; E03.9 Hypothyroidism, unspecified; N20.0 Calculus of kidney; Z92.21 Personal history of antineoplastic chemotherapy; Z98.0 Intestinal bypass and anastomosis status; Z90.49 Acquired absence of other specified parts of digestive tract
CPT/HCPCS: 74177; 93005; G0378; 96374; J0694; J1885; J1956; J2060; Q9967